=== PATIENT | female | born 1960 | race Caucasian/White ===

== ENCOUNTER 2024-10-04 07:45 | Day surgery (SDC) | payer MEDICARE, OTHER ==
[2024-09-27 15:00] VITALS: BP 130/93
[~2024-10-04] VITALS: Ht 162.6 cm; Wt 97.7 kg
[~2024-10-04 07:45] MED LIST: AMLODIPINE BESYL5 MG PO; IBLOOD GLUCOSE TEST STRIP 1 EA TEST VI PRN; LACTATED RINGER'S 1,000 ML IV SCH; LIDOCAINE HCL 1% 5 ML SDV INJ ONE; LISINOPRIL40 MG PO; VASCEPA1 GM PO
[2024-10-04 08:21] VITALS: BP 148/82
[2024-10-04] MEDS ORDERED: LIDOCAINE HCL 2% 5 ML SDV ONE (08:38)
--- NOTE | 2024-10-04 09:46 | NUR ---
10/04/24 0946 [place] 0937-PATIENT ARRIVED TO PACU ON RA 89% RR EVEN. NONAROUSABLE LAYING LEFT LATERAL. ABDOMEN SOFT. SINUS BRADYCARDIA HR 50'S. IVF INFUSING. 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 PER DR. LI PATIENT TO BE SENT HOME PRESCRIPTION WILL CALL INTO [employer]AF[employer]AY. PATIENT TO FOLLOW UP WITH PCP IN 3 WEEKS. 0946-PATIENT STARTING TO MOVE RIGHT UPPER EXTREMITY REMAINS NONAROUSABLE 2L NC 91% RR EVEN.
[2024-10-04 10:42] VITALS: BP 140/80
--- NOTE | 2024-10-06 12:02 | PATH ---
[facility] [address] [facility] [place], [place] [address] Signed SPECIMEN(S): A CECUM BIOPSY SPECIMEN(S): B TERMINAL ILEUM BIOPSY SPECIMEN(S): C MID ASCENDING BIOPSY SPECIMEN(S): D HEPATIC FLEXURE BIOPSY SPECIMEN(S): E MID TRANSVERSE BIOPSY SPECIMEN(S): F SPLENIC FLEXURE BIOPSY SPECIMEN(S): G DESCENDING BIOPSY SPECIMEN(S): H SIGMOID BIOPSY SPECIMEN(S): I RECTUM BIOPSY SPECIMEN(S): J ANTRUM BIOPSY SPECIMEN(S): K BODY BIOPSY SPECIMEN(S): L SIGMOID POLYP, 30 CM SPECIMEN SOURCE: A. CECUM BIOPSY B. TERMINAL ILEUM BIOPSY C. MID ASCENDING BIOPSY D. HEPATIC FLEXURE BIOPSY E. MID TRANSVERSE BIOPSY F. SPLENIC FLEXURE BIOPSY G. DESCENDING BIOPSY H. SIGMOID BIOPSY I. RECTUM BIOPSY J. ANTRUM BIOPSY K. BODY BIOPSY L. SIGMOID POLYP, 30 CM G [id number] CLINICAL HISTORY: History of polyps. Postop-irritable bowel syndrome, small hiatal hernia, antral gastritis, prepyloric ulcers. A-K) biopsy, L) polyp FINAL PATHOLOGIC DIAGNOSIS: A. Cecum, biopsy - Unremarkable colonic mucosa, negative for active colitis, granulomas or dysplasia. B. Terminal ileum, biopsies - Unremarkable ileal mucosa, negative for active inflammation, granulomas or dysplasia. C. Mid ascending colon, biopsies PATIENT NAME: HAYLEY STEPHENS PATHOLOGY DATE OF : 56 REPORT #: [id number] PHYSICIAN: MAGDA PATHOLOGY PCP: LENA MEZA MD REPORT IS CONFIDENTIAL AND NOT TO BE RELEASED WITHOUT AUTHORIZATION [facility] [address] [place], [place] [address] Signed - Unremarkable colonic mucosa, negative for active colitis, granulomas or dysplasia. D. Hepatic flexure, biopsy - Unremarkable colonic mucosa, negative for active colitis, granulomas or dysplasia. E. Mid transverse colon, biopsy - Unremarkable colonic mucosa, negative for active colitis, granulomas or dysplasia. F. Splenic flexure, biopsy - Unremarkable colonic mucosa, negative for active colitis, granulomas or dysplasia. G. Descending colon, biopsies - Unremarkable colonic mucosa, negative for active colitis, granulomas or dysplasia. H. Sigmoid colon, biopsies - Unremarkable colonic mucosa, negative for active colitis, granulomas or dysplasia. I. Rectum, biopsy - Hyperplastic polyp. J. Antrum, biopsy - Mild chronic gastritis, negative for active inflammation or intestinal metaplasia. - No H. pylori bacteria are detected by HE stain. K. Gastric body, biopsy - Mild chronic gastritis, negative for active inflammation or intestinal metaplasia. - No H. pylori bacteria are detected by HE stain. L. Sigmoid polyp at 30 cm - Hyperplastic polyp. AMB MICROSCOPIC EXAMINATION: Histologic sections of all submitted blocks are examined by light microscopy. These findings, together with the gross examination, support the pathologic diagnosis. GROSS DESCRIPTION: A. The specimen, labeled and designated "Eggebrecht, cecum biopsy," is received in formalin and consists of one xiao soft tissue fragment, 0.8 cm. Entirely submitted in (A1). B. The specimen, labeled and designated "Eggebrecht, terminal ileum biopsy," is PATIENT NAME: HAYLEY STEPHENS PATHOLOGY DATE OF : 56 REPORT #: [id number] PHYSICIAN: MAGDA PATHOLOGY PCP: LENA MEZA MD REPORT IS CONFIDENTIAL AND NOT TO BE RELEASED WITHOUT AUTHORIZATION [facility] [address] [place], [place] [address] Signed received in formalin and consists of two xiao soft tissue fragments, ranging from 0.3-0.4 cm. Entirely submitted in (B1). C. The specimen, labeled and designated "Eggebrecht, terminal ileum biopsy," is received in formalin and consists of one xiao soft tissue fragment, 0.4 cm. Entirely submitted in (C1). D. The specimen, labeled and designated "Eggebrecht, hepatic flexure biopsy," is received in formalin and consists of one xiao soft tissue fragment, 0.5 cm. Entirely submitted in (D1). E. The specimen, labeled and designated "Eggebrecht, mid transverse biopsy," is received in formalin and consists of one xiao soft tissue fragment, 0.5 cm. Entirely submitted in (E1). F. The specimen, labeled and designated "Eggebrecht, splenic flexure biopsy," is received in formalin and consists of one xiao soft tissue fragment, 0.3 cm. Entirely submitted in (F1). G. The specimen, labeled and designated "Eggebrecht, descending biopsy," is received in formalin and consists of two xiao soft tissue fragments, ranging from 0.2-0.3 cm. Entirely submitted in (G1). H. The specimen, labeled and designated "Eggebrecht, sigmoid biopsy," is received in formalin and consists of two xiao soft tissue fragments, ranging from 0.4-0.5 cm. Entirely submitted in (H1). I. The specimen, labeled and designated "Tatarecneal, rectum biopsy," is received in formalin and consists of one xiao soft tissue fragment, 0.4 cm. Entirely submitted in (I1). J. The specimen, labeled and designated "Eggebrecht, antrum biopsy," is received in formalin and consists of one xiao soft tissue fragment, 0.3 cm. Entirely submitted in (J1). K. The specimen, labeled and designated "Eggebrecht, body biopsy," is received in formalin and consists of one xiao soft tissue fragment, 0.5 cm. Entirely submitted in (K1). L. The specimen, labeled and designated "Eggebrecht, sigmoid polyp, 30 cm," is received in formalin and consists of one xiao soft tissue fragment, 0.4 cm. Entirely submitted in (L1). AB (under the direct supervision of a pathologist) The Gross Description was prepared using a voice recognition system. The report was reviewed for accuracy; however, sound-alike word errors, addition and/or deletions may occur. If there is any question about this report, please contact Client Services. ADDITIONAL NOTES: Immunohistochemical and/or in situ hybridization studies if performed in this PATIENT NAME: HAYLEY STEPHENS PATHOLOGY DATE OF : 56 REPORT #: [id number] PHYSICIAN: MAGDA FLORES PCP: LENA MEZA MD REPORT IS CONFIDENTIAL AND NOT TO BE RELEASED WITHOUT AUTHORIZATION [address] [address] Signed case included appropriate positive controls that reacted as expected. This test was developed and its performance characteristics determined by [facility]. It has not been cleared or approved by the U.S. Food and Drug Administration. The FDA has determined that such clearance or approval is not necessary. This test is used for clinical purposes. It should not be regarded as investigational or for research. [facility] is certified under the Clinical Laboratory Improvement Amendments of 1988 (CLIA) as qualified to perform high complexity clinical laboratory testing. PERFORMING LABORATORY: Technical component was performed by [facility], [address] [place] [id number] (CLIA# [id number]). Professional interpretation was performed by [facility] - [address] [id number] Diagnostician: Karen Beltran MD Pathologist Electronically Signed 10/06/2024 Copies: ~ PATIENT NAME: HAYELY STEPHENS PATHOLOGY DATE OF : 56 REPORT #: [id number] PHYSICIAN: MAGDA PATHOLOGY PCP: LENA MEZA MD REPORT IS CONFIDENTIAL AND NOT TO BE RELEASED WITHOUT AUTHORIZATION
== END 2024-10-04 10:25 | disposition home or self-care (01) ==
LOC: DS 07:45
PROVIDERS: ATTEND Surgery
PROC: 0DBL8ZX Excision of Transverse Colon, Via Natural or Artificial Opening Endoscopic, Diagnostic (ICD-10-PCS; 2024-10-04)
PROC: 0DBN8ZX Excision of Sigmoid Colon, Via Natural or Artificial Opening Endoscopic, Diagnostic (ICD-10-PCS; 2024-10-04)
PROC: 0DBP8ZX Excision of Rectum, Via Natural or Artificial Opening Endoscopic, Diagnostic (ICD-10-PCS; 2024-10-04)
PROC: 0DBB8ZX Excision of Ileum, Via Natural or Artificial Opening Endoscopic, Diagnostic (ICD-10-PCS; 2024-10-04)
PROC: 0DBM8ZX Excision of Descending Colon, Via Natural or Artificial Opening Endoscopic, Diagnostic (ICD-10-PCS; 2024-10-04)
PROC: 0DBH8ZX Excision of Cecum, Via Natural or Artificial Opening Endoscopic, Diagnostic (ICD-10-PCS; 2024-10-04)
PROC: 0DB68ZX Excision of Stomach, Via Natural or Artificial Opening Endoscopic, Diagnostic (ICD-10-PCS; principal; 2024-10-04 08:40)
PROC: 0DBK8ZX Excision of Ascending Colon, Via Natural or Artificial Opening Endoscopic, Diagnostic (ICD-10-PCS; 2024-10-04 08:40)
DX: K58.9 Irritable bowel syndrome, unspecified (principal); K62.1 Rectal polyp; K63.5 Polyp of colon; K29.50 Unspecified chronic gastritis without bleeding; K25.9 Gastric ulcer, unspecified as acute or chronic, without hemorrhage or perforation; K44.9 Diaphragmatic hernia without obstruction or gangrene; I10 Essential (primary) hypertension; Z79.899 Other long term (current) drug therapy; Z88.0 Allergy status to penicillin; Z88.6 Allergy status to analgesic agent; Z88.8 Allergy status to other drugs, medicaments and biological substances; Z88.5 Allergy status to narcotic agent
CPT/HCPCS: 36415; 87077; J2003; J2704; J7121